=== PATIENT | male | born 2000 | race Caucasian/White ===

== ENCOUNTER 2024-09-22 13:57 | Emergency (ER) | payer OTHER, SELFPAY ==
[2024-09-22 14:07] VITALS: BP 156/93; PULSE 65; RESP 18; TEMP 36.7; O2SAT 99
--- NOTE | 2024-09-22 14:31 | ED_ITS ---
HPI - General Adult General Chief complaint: Unspecified Stated complaint: punctured with dirty needle Time Seen by Provider: 09/22/24 14:06 Source: patient Mode of arrival: ambulatory Limitations: no limitations History of Present Illness HPI narrative: Patient is a 23-year-old male who presents the ED with report of an accidental needlestick. 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 Sustained small puncture wounds. Patient states the needle was potentially use for fentanyl or methamphetamines. 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 Patient's tetanus status is up-to-date. Review of Systems Review of Systems: All systems reviewed & are unremarkable except as noted in HPI. All systems reviewed & are unremarkable except as noted in HPI and below Exam Narrative: GENERAL: Well appearing, well-nourished, non-toxic, in no acute distress. HEAD: Normocephalic, atraumatic. RESPIRATORY: Airway patent, respirations nonlabored. CARDIOVASCULAR: Regular rate and rhythm MUSCULOSKELETAL: Moves all extremities. No gross deformities. SKIN: Warm, dry, normal color. Pinpoint puncture wounds to finger pad of right 2nd digit, left 1st digit. No active bleeding or drainage. NEURO: A&O X3. Speech clear. PSYCHIATRIC: Appropriate mood and affect. Normal interaction. Course Vital Signs Vital signs: Vital Signs Temperature 98.0 F 09/22/24 14:07 Pulse Rate 65 09/22/24 14:07 Respiratory Rate 18 09/22/24 14:07 Blood Pressure 156/93 H 09/22/24 14:07 Pulse Oximetry 99 09/22/24 14:07 Oxygen Delivery Room Air 09/22/24 14:07 Temperature 98.0 F 09/22/24 14:07 Pulse Rate 65 09/22/24 14:07 Respiratory Rate 18 09/22/24 14:07 Blood Pressure 156/93 H 09/22/24 14:07 Pulse Oximetry 99 09/22/24 14:07 Oxygen Delivery Room Air 09/22/24 14:07 Medical Decision Making MDM Narrative Medical decision making narrative: Needlestick profile ordered. Negative. Advised patient will need to follow-up with primary care doctor or health department for repeat testing in the future, typically recommended at 3 and 6 month intervals. Given list of primary care doctors in the area. Given return precautions. Discharged in stable condition. Medical Records Medical records reviewed: Yes I reviewed the external patient's medical records. Vital Signs Vital Signs: Vital Signs Temperature 98.0 F 09/22/24 14:07 Pulse Rate 65 09/22/24 14:07 Respiratory Rate 18 09/22/24 14:07 Blood Pressure 156/93 H 09/22/24 14:07 Pulse Oximetry 99 09/22/24 14:07 Oxygen Delivery Room Air 09/22/24 14:07 Temperature 98.0 F 09/22/24 14:07 Pulse Rate 65 09/22/24 14:07 Respiratory Rate 18 09/22/24 14:07 Blood Pressure 156/93 H 09/22/24 14:07 Pulse Oximetry 99 09/22/24 14:07 Oxygen Delivery Room Air 09/22/24 14:07 Lab Data Lab results reviewed: Yes I reviewed the patient's lab results. Labs: Lab Results 09/22/24 Range/Units 14:28 Hep Bs Antigen Negative (Negative) Hepatitis C Ab Screen Negative (Negative) HIV 1&2 Ab/P24 Ag 4thGn Negative (Negative) Discharge Plan Discharge Clinical Impression: Needlestick injury accident Patient Disposition: Home Condition: Stable Instructions: Antibiotic Form, Needle Stick Injuries (ED) Additional Instructions: Follow-up with primary care doctor for repeat infectious disease testing, typically recommend at 3 and 6 month intervals after a needlestick injury. Patient Language: Cuban Follow-up/Referrals: Edel Goss MD [Physician] - (PRIMARY CARE) PHYSICIAN,OUTBOUND SALES CONSULTANT [Primary Care Provider] - Time of Disposition: 14:37
[2024-09-22 15:14] LABS: Hepatitis B Surface Antigen Negative (Negative)
[2024-09-22 15:31] LABS: HIV 1/2 Ab P24 Ag Result Negative (Negative); Hepatitis C Virus Antibody Negative (Negative)
== END 2024-09-22 15:56 | disposition home or self-care (01) ==
PROVIDERS: Emergency Provider Physician Assistant
DX: S61.230A Puncture wound without foreign body of right index finger without damage to nail, initial encounter (principal); S61.032A Puncture wound without foreign body of left thumb without damage to nail, initial encounter; W46.1XXA Contact with contaminated hypodermic needle, initial encounter
CPT/HCPCS: 36415; 86703; 86803; 87340; 99283; G0432